=== PATIENT | female | born 1995 | race Caucasian/White ===

== ENCOUNTER → 2018-01-27 16:51 | Observation (INO) ==
[2018-01-27 12:45] LABS: Amphetamine Screen,Urine Negative ng/mL (Cutoff=1000); Barbiturate Screen,Urine Negative ng/mL (Cutoff=200); Benzodiazepines Screen,Urine Negative ng/mL (Cutoff=200); Cannabinoid Screen,Urine Positive ng/mL (Cutoff = 50); Cocaine Screen,Urine Negative ng/mL (Cutoff= 300); Opiate Screen,Urine Negative ng/mL (Cutoff=300); Phencyclidine Screen,Urine Negative ng/mL (Cutoff=25)
--- NOTE | 2018-01-27 15:28 | OB/GYN History & Physical ---
Date of Encounter: 01/27/18 Time of Encounter: 15:12 Assessment and Plan (1) 37 weeks gestation of Current visit: No Status: Resolved (2) Anemia affecting in third trimester Current visit: No Status: Acute (3) False labor at or after 37 completed weeks of gestation, antepartum Current visit: Yes Status: Acute Pt continues to have contractions, but has made only 1cm change in 5 hours, with no change in last hour and a half. Discharged home with labor and when to return to triage precautions. Pt verbalizes understanding. History of Present Illness Chief complaint: Contractions HPI: Ms. Porras is a 22 year old female at 37 3/7 weeks gestation presents to L&D with complaints of contractions since her PN visit yesterday. She notes that this morning she had blood-tinged mucous vaginal discharge. The contractions are not regular. She notes normal movement and denies vaginal loss of fluid. Her has been complicated by anemia, and she is on iron supplementation. Blood Type: A+ Hep C non reactive HIV negative RPR negative Varicella positive Rubella immune GBS negative Past Med Surg Social Fam HX - Past Medical History Medical history: no medical history Psychiatric history: no psych history - Past Surgical History Surgical History: other - Social History Smoking Status: Never smoker Smokeless Tobacco Status: Yes (SNUFF POUCHES) Alcohol use: none Drug use: none - Family History Mother Adopted: No Living Status: Still Living Hx Family Cardiac Disorders: No Hx Family Respiratory Disorders: No Hx Family Cancer: No Hx Family GI Disorders: No Hx Family Genitourinary Disorders: No Hx Family Endocrine Disorder: No Hx Family Musculoskeletal Disorders: No Hx Family Neuromuscular Disorders: No Hx Family Neurologic Disorders: No Hx Family HEENT Disorders: No Hx Family Autoimmune Disorders: No Hx Family Reproductive Disorders: No Hx Family Psychosocial Disorders: No Hx Family Medical Disorders: No Obstetrical History - Pregnancies : 3 Para: 1 Term: 1 : 0 Ab's: 1 Livin Medications and Allergies Feosol 325 mg PO DAILY 09/07/16 [History] Formula Tablet 1 tab PO DAILY 09/07/16 [History] 3 Allergy/AdvReac Type Severity Reaction Status Date / Time No Known Drug Allergies Allergy Anaphylaxis Verified 01/27/18 12:29 Review of System OB All systems PM: reviewed and no additional remarkable complaints except as stated Exam - Constitutional Constitutional: well developed, well nourished, no acute distress, average body habitus - HEENT HEENT: Normocephaly, Mucus Membranes Moist - Neck Neck exam: normal inspection, trachea midline - Lungs Respiratory exam: CTAB - Cardiovascular Cardiovascular exam: RRR - Abdomen Abdomen: Present: gravid, non tender - Vagina Vagina: Present: normal moisture - Cervix Dilation: 4 Results Abnormal lab results U Marijuana (THC) Screen Positive ng/mL (Cutoff = 50) H 01/27/18 12:30 All other labs normal. - VTE Reasons for not Prescribing Prophylaxis: Treatment not Indicated - Low risk for VTE
== END | disposition home or self-care (01) ==
LOC: 1NENULAB
PROVIDERS: ADMIT Advanced Practice Midwife; ATTEND Advanced Practice Midwife

== ENCOUNTER 2018-02-02 19:57 | Inpatient (IN) ==
[2018-02-02 13:36] LABS: Amphetamine Screen,Urine Negative ng/mL (Cutoff=1000); Barbiturate Screen,Urine Negative ng/mL (Cutoff=200); Benzodiazepines Screen,Urine Negative ng/mL (Cutoff=200); Cannabinoid Screen,Urine Negative ng/mL (Cutoff = 50); Cocaine Screen,Urine Negative ng/mL (Cutoff= 300); Opiate Screen,Urine Negative ng/mL (Cutoff=300); Phencyclidine Screen,Urine Negative ng/mL (Cutoff=25)
--- NOTE | 2018-02-02 15:39 | OB/GYN History & Physical ---
Date of Encounter: 02/02/18 Time of Encounter: 16:09 Assessment and Plan (1) 38 weeks gestation of Current visit: Yes Status: Acute Admit to L&D for cervical change from 5cm -6cm Start pitocin CEFM GBS - Anticipate Dr. Watson head bone grinder and available for backup History of Present Illness Chief complaint: contractions HPI: Ms. Porras is a 22 year old female at 38 weeks +2 days dated by early ultrasound with an EDB of 02/14/18. She presents from the office with c/o pressure and contractions. Per Dr. Manning VE in office was . She endorses good FM and denies LOF, vaginal bleeding, MENEZES, blurry vision, and RUQ pain. She made cervical change in triage from 5cm-6cm. Will admit for labor. Labs: A+ GBS- Hep B - HIV - T. Palladium - Rubella immune Varicella immune Past Med Surg Social Fam HX - Past Medical History Medical history: no medical history Psychiatric history: no psych history - Past Surgical History Surgical History: other - Social History Smoking Status: Never smoker Smokeless Tobacco Status: Yes (SNUFF POUCHES) Alcohol use: none Drug use: none - Family History Mother Adopted: No Living Status: Still Living Hx Family Cardiac Disorders: Yes (HLD, HTN) Hx Family Respiratory Disorders: No Hx Family Cancer: No Hx Family GI Disorders: No Hx Family Genitourinary Disorders: No Hx Family Endocrine Disorder: No Hx Family Musculoskeletal Disorders: No Hx Family Neuromuscular Disorders: No Hx Family Neurologic Disorders: No Hx Family HEENT Disorders: No Hx Family Autoimmune Disorders: No Hx Family Reproductive Disorders: No Hx Family Psychosocial Disorders: No Hx Family Medical Disorders: No Obstetrical History - Pregnancies : 3 Para: 1 Term: 1 (09-08-16 37w, normal spontaneous vaginal delivery (),female, 7lbs 8oz "Rosa". ) : 0 Ab's: 1 ( , spontaneous , dilatation and curettage (D&C). ) Livin Medications and Allergies Feosol 325 mg PO DAILY 09/07/16 [History] Formula Tablet 1 tab PO DAILY 09/07/16 [History] 3 Allergy/AdvReac Type Severity Reaction Status Date / Time No Known Drug Allergies Allergy Anaphylaxis Verified 01/27/18 12:29 Review of System OB All systems PM: reviewed and no additional remarkable complaints except as stated Exam - Constitutional Constitutional: well developed, well nourished, no acute distress, average body habitus - HEENT HEENT: PERRL - Neck Neck exam: full ROM - Lungs Respiratory exam: CTAB - Cardiovascular Cardiovascular exam: RRR, +S1, +S2 - Breasts Breast: bilateral: normal - Abdomen Abdomen: Present: bowel sounds normal, gravid, non tender - Extremities Extremities exam: normal inspection, radial pulses palpable and symmetrical - Vulva Vulva: bilateral: normal - Vagina Vagina: Present: normal moisture - Cervix Dilation: 5 Effacement: 80 Station: -2 - Uterus Uterus exam: Present: normal size, normal contour - Anus/Rectum Anus/Rectum: Present: normal perianal skin Results All other labs normal. - VTE Reasons for not Prescribing Prophylaxis: Treatment not Indicated - Low risk for VTE
[2018-02-02 18:58] LABS: Basophils % 0.2 %; Eosinophils # 0.1 K/mcL (0.0-0.6); Eosinophils % 0.6 %; Hematocrit 31.5 % (35.3-44.9); Hemoglobin 10.2 g/dL (11.5-15.4); Immature Granulocytes % 0.4 % (0-4); Lymphocytes # 1.6 K/mcL (0.6-4.6); Lymphocytes % 14.4 %; Mean Corpuscular HGB Conc 32.4 g/dL (31.6-35.5); Mean Corpuscular Hemoglobin 27.4 pg (28.0-33.3); Mean Corpuscular Volume 84.7 fL (83.0-100.0); Mean Platelet Volume 9.9 fL (9.4-12.4); Monocytes # 0.8 K/mcL (0.0-1.3); Neutrophils # 8.7 K/mcL (1.6-8.9); Platelet Count 225 K/mcL (140-400); Red Blood Count 3.72 M/mcL (3.82-4.97); Red Cell Distribution Width 14.8 % (11.5-14.5); Segmented Neutrophils % 77.4 %
--- NOTE | 2018-02-02 19:37 | Anesthesia Evaluation PreOp ---
Date of Encounter: 02/02/18 Time of Encounter: 19:35 - Past History Planned Operation: oneil Cardiac History: Denies any Significant Hx Pulmonary History: Denies Any Significant HX HUMAN RESOURCE ADVISER History: Denies Any Significant HX Other Medical History: GERD Anesthesia History: No Prior Anesthetic Complications, Past Anesthesia (D & C, oneil), Problems (none) : Yes Test: Positive Alcohol Use: none Drug use: none Medications and Allergies Feosol 325 mg PO DAILY 09/07/16 [History] Formula Tablet 1 tab PO DAILY 09/07/16 [History] 3 Allergy/AdvReac Type Severity Reaction Status Date / Time No Known Drug Allergies Allergy Anaphylaxis Verified 01/27/18 12:29 - Meds/Allergy Pre-op Review Medications Reviewed: Yes Allergies Reviewed: Yes Beta Blockers on Current Med List: No Anesthesia Results - Labs 02/02/18 18:22 Anesthesia Exam Height: 5'7" Weight: 190 NPO (# of Hours): 2 Pain Scale: 4 Pain Scale Used: Numeric (1 - 10) - HEENT Pupil (Motor): Pupils equal Mallampati: II Teeth: Normal Oral Opening: Greater than 3 - HUMAN RESOURCE ADVISER LOC: Oriented HUMAN RESOURCE ADVISER Motor: Normal RUE, Normal LUE, Normal RLE, Normal LLE, Normal Face HUMAN RESOURCE ADVISER Sensory: Normal: RUE, LUE, RLE, LLE, Face - Cardiac Rhythm: Regular Murmur: None - Pulmonary Breath Sounds: bilateral Clear Respiratory Effort: Symmetrical Anesthesia Assess/Plan ASA Score: 2 Modified [place] Scale for Level of Consciousness: Cooperative, oriented, and tranquil Anesthetic Plan: Regional Autologous Blood: No Monitoring Plan: Standard Monitors Recovery Plan: Other (risks discussed, questions answered, consented)
[~2018-02-02 19:57] MED LIST: *HR* FentaNYL (PF) 100 MCG/2 ML VIAL EP ONE; *HR* FentaNYL (PF) 100 MCG/2 ML VIAL ONE; *HR* Nalbuphine 20 MG/ML AMPUL IVP PRN; Epidural Premix (fent/bupiv) 110 ML EP ONE; Epidural Premix (fent/bupiv) 110 ML EP SCH; Famotidine 20 MG/2 ML VIAL IVP PRN; Lidocaine 1% 20 ML MDV INFILT PRN; Metoclopramide 10 MG/2 ML VIAL IVP PRN; Naloxone 0.4 MG/ML INJ IVP PRN; Ondansetron 4 MG/2 ML VIAL IVP PRN; Oxytocin 20 units/ LR 1000 mL 20 UNIT/1,000 ML BAG IVC SCH; Ringers Solution, Lactated 1,000 ML IVC SCH; Ringers Solution, Lactated 1,000 ML ONE
[2018-02-02] MEDS ORDERED: EPHEDrine 50 MG/ML VIAL ONE (20:15)
--- NOTE | 2018-02-02 20:33 | Anesthesia Procedures ---
Date of Encounter: 02/02/18 Time of Encounter: 20:31 Procedures: Anesthesia - Epidural/Spinal Patient ID/Chart reviewed: Yes Patient examined: Yes OB Eval: Gestational age: 39 OB Eval: : 2 OB Eval: Hx Para: 1 OB Eval: Dilated at (cm): 6 OB Eval: Contractions: Non-stressed pattern Consent Obtained: Yes Supplemental Oxygen: None/Room Air Site Prep: Aseptic Technique, Sterile prep and drape, 0.5% Chlorhexidine/Alcohol Patient position: upright Local Anesthetic: Lidocaine 1% Amount of Local Anesthetic used: 3 Touhy Needle Gauge: 18 Touhy Needle Depth (cm): 6 Catheter Depth at Skin (cm): 15 Test Dose (1.5% Lido + Epi): Volume given (mls): 3 Test Dose Result: Negative Loading Dose: Fentanyl (mcg): 100 Loading Dose: Other: rop 0.2% 10 cc Loading Dose Administered: Thru Touhy Needle Infusion Med: 0.125% Bupivacaine w/ 2 mcg/ml Fentanyl Infusion Rate (mls/hr): [address]: Tegaderm Interspace Used: L2-L3 Loss of Resistance (DOMONIQUE): Yes Blood: No CSF: No Paresthesia: No Procedure: aseptic, [place] well, BP initially drop, ephedrine rt lat decub, BP to normal Vitals + FHT's: 113/76 99 fht 133
--- NOTE | 2018-02-03 00:15 | OB Labor Progress Note ---
Date of Encounter: 02/03/18 Time of Encounter: 00:13 Labor Progress Note - Subjective Subjective: Pt reports good pain relief with epidural. - Cervix Cervix: 6/80/-1 - Heart Tones Heart Tones: Baseline 130 Moderate variability Accelerations present 15x15 No decelerations FHR category I - [place]: contractions 2-4 and palpate mild to moderate - Interventions Interventions: AROM IUPC placed - Plan Plan: Continue expectant management Use peanut ball for frequent position changes Anticipate
--- NOTE | 2018-02-03 01:59 | OB/GYN Procedure Note ---
Delivery - Delivery Date: 02/03/18 Provider: Pam Roper Intrapartum events: none Delivery induction: none Delivery augmentation: rupture of membranes, pitocin Delivery monitor: external FHT, external uterine Anesthesia: epidural Estimated Blood Loss: 200 - Infant (s) A Infant Delivery Date: 02/03/18 Infant Delivery Time: 01:23 Presentation: vertex Position: JERSON Route of delivery: Gender: Male Viability: Viable Pounds: 8 Ounces: 0 Weight Gram: 3.64 kg at 1 minute: 8 at 5 mins: 9 Shoulder Dystocia: not encountered Specimens collected: cord blood Placenta: spontaneous Cord: 3 umbilical vessels - Repair Episiotomy: none Laceration Description: Superficial - Complications Delivery complications: none Delivery comments: This is a 22-year-old G3 now P2012 who was admitted for active labor. She progressed with Pitocin augmentation and AROM to the second stage of labor. She pushed for 5 minutes. Under maternal effort, she delivered a viable male infant, JERSON over an intact perineum. The mouth and nares were bulb suctioned on the maternal abdomen. No nuchal cord was identified and no shoulder dystocia was encountered. Cord was clamped and cut after all pulsing ceased. scores were 8 at 1 minute and 9 at 5 minutes. The placenta delivered spontaneously, intact, with a three-vessel cord. Inspection revealed no perineal, sidewall or cervical lacerations. The uterus was firm with no active bleeding. EBL was 200 mL. Placenta and umbilical artery gases were not sent. There were no complications during the procedure. Dr. Watson was notified of delivery. Mom and baby are [id number] following delivery. - Disposition Mom disposition: stable in LDR disposition: stable in LDR
[2018-02-03] MEDS ORDERED: Oxytocin 20 units/ LR 1000 mL 20 UNIT/1,000 ML BAG IVC SCH (04:13)
[2018-02-03] MEDS ORDERED: Benzocaine/Menthol 56 GM AEROSOL SPRAY TP PRN (04:13)
[2018-02-03] MEDS ORDERED: Acetaminophen 325 MG TABLET PO PRN (04:13)
[2018-02-03] MEDS: Ibuprofen 600 MG TABLET PO PRN ×3 (05:06→18:20)
[2018-02-03] MEDS ORDERED: Lanolin 7 G OINT...G. TP PRN (05:08)
[2018-02-03] MEDS: Prenatal Vit/FA 1 EACH TABLET PO SCH (08:10)
[2018-02-04] MEDS: Ibuprofen 600 MG TABLET PO PRN ×2 (01:37→12:02)
[2018-02-04 08:08] VITALS: BP 117/81
[2018-02-04] MEDS: Prenatal Vit/FA 1 EACH TABLET PO SCH (09:12)
--- NOTE | 2018-02-04 10:11 | OB/GYN Progress Note ---
Date of Encounter: 02/04/18 Time of Encounter: 10:08 - Assessment and Plan (1) Vaginal delivery Current Visit: Yes Status: Acute Stable, PPD#1, meeting all milestones, will discharge home. (2) anemia Current Visit: Yes Status: Acute Subjective - Subjective Interval history: pt states pain well managed on po pain medication, tolerates po diet, , desires discharge. Patient reports: appetite normal, voiding normally, pain well controlled, ambulating normally : doing well, nursing well Objective - Latest Vital Signs Latest vital signs: Vital Signs Temp Pulse Resp BP Pulse Ox 02/04/18 07:45 98.1 F 81 16 117/81 96 02/03/18 20:40 98.4 F 95 16 122/76 96 02/03/18 16:22 98.1 F 91 18 122/81 99 Intake and Output 02/03/18 02/04/18 02/04/18 23:59 07:59 15:59 Intake Total 2000 / 2000 800 / 800 Output Total 2500 / 2500 500 / 500 Balance -500 / -500 300 / 300 Intake: Oral 2000 / 2000 800 / 800 Output: Urine 2500 / 2500 500 / 500 Other: # Voids 1 Weight 82.554 kg Patient Weight 02/04/18 23:59 Weight 82.554 kg - Exam Lungs: bilateral: normal Chest: Normal S1, Normal S2 Extremities: Present: normal Abdomen: Present: normal appearance, soft Uterus: Present: firm Uterus Position: At Umbilicus
--- NOTE | 2018-02-04 10:14 | Discharge Summary ---
Date of Encounter: 02/04/18 Time of Encounter: 10:11 - Discharge Diagnosis (1) Vaginal delivery Priority: Primary Status: Acute Comments: Pain well managed on po pain medication, tolerates po diet, desires discharge (2) anemia Priority: Secondary Status: Acute Comments: Will send home on iron - Discharge Medications Prescriptions: Ibuprofen [Motrin] 600 mg PO Q6HR PRN #60 tablet PRN Reason: Cramping Docusate [Colace] 100 mg PO BID #60 capsule Ferrous Sulfate 325 mg PO DAILY #60 tablet Home Medications: Formula Tablet 1 tab PO DAILY 09/07/16 [History] Acetaminophen [Tylenol] 650 mg PO Q6HR PRN tablet 02/04/18 [Rx] Docusate [Colace] 100 mg PO BID #60 capsule 02/04/18 [Rx] Ferrous Sulfate 325 mg PO DAILY #60 tablet 02/04/18 [Rx] Ibuprofen [Motrin] 600 mg PO Q6HR PRN #60 tablet 02/04/18 [Rx] Lanolin [Lansinoh] 1 appl TP TID PRN oint...g. 02/04/18 [Rx] Vit/FA 1 each PO DAILY tablet 02/04/18 [Rx] Allergies/Adverse Reactions: 3 Allergy/AdvReac Type Severity Reaction Status Date / Time No Known Drug Allergies Allergy Anaphylaxis Verified 01/27/18 12:29 Data Procedures and tests throughout hospitalization: Laboratory Tests 02/02/18 02/02/18 13:26 18:22 WBC 11.3 H RBC 3.72 L Hgb 10.2 L Hct 31.5 L MCV 84.7 MCH 27.4 L MCHC 32.4 RDW 14.8 H Plt Count 225 MPV 9.9 Immature Gran % 0.4 Seg Neutrophils % 77.4 Lymphocytes % 14.4 Monocytes % 7.0 Eosinophils % 0.6 Basophils % 0.2 Neutrophils # 8.7 Lymphocytes # 1.6 Monocytes # 0.8 Eosinophils # 0.1 Basophils # 0.0 Urine Opiates Screen Negative Ur Barbiturates Screen Negative Ur Phencyclidine Scrn Negative Ur Amphetamines Screen Negative U Benzodiazepines Scrn Negative Urine Cocaine Screen Negative U Marijuana (THC) Screen Negative Date of admission: 02/02/18 19:58 Primary care physician: Erlin Dowling DO Consults: 02/03/18 04:13 Consult to Diabetes Education Coordinator [CONS] Routine Comment: Vaginal delivery, consult needed Discharging clinician: Ida Castelan Anticipated date of discharge: 02/04/18 - Patient Status Disposition: Home, Self-Care Condition: Good Functional capacity at discharge: independent ambulation Overall status at discharge: patient is back to baseline - Discharge Instructions Instructions: Anemia (GEN) Follow Up With: Erlin Dowling DO [Primary Care Provider] - Dahlia Manning MD [Partnered Physician] - - Diet and Activity Activity: resume usual activities as tolerated Diet: regular diet Hospital Course Reason for admission: active labor Delivery: Episiotomy: none Laceration: none Other procedures: none complications: none Discharge diagnosis: IUP at term delivered baby: male Hospital course: Delivery - Delivery Date: 02/03/18 Provider: Pam Roper Intrapartum events: none Delivery induction: none Delivery augmentation: rupture of membranes, pitocin Delivery monitor: external FHT, external uterine Anesthesia: epidural Estimated Blood Loss: 200 - (s) A Infant Delivery Date: 02/03/18 Delivery Time: 01:23 Presentation: vertex Position: JERSON Route of delivery: Gender: Male Viability: Viable Pounds: 8 Ounces: 0 Weight Gram: 3.64 kg at 1 minute: 8 at 5 mins: 9 Shoulder Dystocia: not encountered Specimens collected: cord blood Placenta: spontaneous Cord: 3 umbilical vessels - Repair Episiotomy: none Laceration Description: Superficial - Complications Delivery complications: none Delivery comments: This is a 22-year-old G3 now P2012 who was admitted for active labor. She progressed with Pitocin augmentation and AROM to the second stage of labor. She pushed for 5 minutes. Under maternal effort, she delivered a viable male infant, JERSON over an intact perineum. The mouth and nares were bulb suctioned on the maternal abdomen. No nuchal cord was identified and no shoulder dystocia was encountered. Cord was clamped and cut after all pulsing ceased. scores were 8 at 1 minute and 9 at 5 minutes. The placenta delivered spontaneously, intact, with a three-vessel cord. Inspection revealed no perineal, sidewall or cervical lacerations. The uterus was firm with no active bleeding. EBL was 200 mL. Placenta and umbilical artery gases were not sent. There were no complications during the procedure. Dr. Watson was notified of delivery. Mom and baby are [id number] following delivery. - Disposition Mom disposition: stable in PP and appropriate for discharge Time Attestation: Total time spent providing and/or coordinating discharge services: Time Spent: Less than 30 minutes Exam - Constitutional Vitals: Temp Pulse Resp BP Pulse Ox 98.1 F 81 16 117/81 96 02/04/18 07:45 02/04/18 07:45 02/04/18 07:45 02/04/18 07:45 02/04/18 07:45 General appearance IM: A&O X 3 - Respiratory Respiratory exam: Present: CTAB - Cardiovascular Cardiovascular exam IM: Present: RRR - GI/Abdominal GI/Abdominal exam IM: normal bowel sounds - Uterine Tone: Firm Uterus Position: At Umbilicus - Extremities Exam Extremities exam IM: Present: normal capillary refill, normal inspection - Neurological Exam Neurological exam: normal gait, oriented X3 - Psychiatric Additional comments: Reports good mood
== END 2018-02-04 15:40 | disposition home or self-care (01) | DRG 560 ==
LOC: 1NENULAB → 1NENUOBS 02-03 04:13
PROVIDERS: ADMIT Student in an Organized Health Care Education/Training Program; ATTEND Student in an Organized Health Care Education/Training Program